=== PATIENT | female | born 1945 | race Caucasian/White ===

== ENCOUNTER 2017-04-03 20:10 | Emergency (ER) | payer OTHER ==
[~2017-04-03] VITALS: Wt 67.0 kg
[2017-04-03] MEDS ORDERED: IPRATROPIUM (NEB) 0.5 MG/2.5 ML AMP NEB STA ×2 (20:44→23:14)
[2017-04-03] MEDS ORDERED: ALBUTEROL 0.083% (NEB) 2.5 MG/3 ML AMP NEB STA ×2 (20:44→23:14)
[2017-04-03] MEDS ORDERED: SOD CHLORIDE 0.9% 1,000 ML IV STA (20:44)
[2017-04-03] MEDS ORDERED: BENZONATATE 100 MG CAP PO ONE (21:00)
[2017-04-03 21:13] LABS: BASOPHIL # 0.1 10^3/ul (0.0-0.1); BASOPHILS % 1.4 % (0.0-2.0); EOSINOPHILS # 0.3 10^3/ul (0.0-0.5); EOSINOPHILS % 3.7 % (0.0-7.0); HEMATOCRIT 38.7 % (37.0-47.0); HEMOGLOBIN 12.9 g/dl (12.0-16.0); LYMPHOCYTES # 2.6 10^3/ul (0.8-2.9); LYMPHOCYTES % 35.4 % (15.0-51.0); MEAN CORPUSCULAR HEMOGLOBIN 28.6 pg (29.0-33.0); MEAN CORPUSCULAR HGB CONC 33.3 g/dl (32.0-37.0); MEAN CORPUSCULAR VOLUME 85.8 fl (82.0-101.0); MEAN PLATELET VOLUME 10.4 fl (7.4-10.4); MONOCYTE # 0.8 10^3/ul (0.3-0.9); MONOCYTES % 11.6 % (0.0-11.0); NEUTROPHIL # 3.5 10^3/ul (1.6-7.5); NEUTROPHILS % 47.8 % (39.0-77.0); PLATELET COUNT 293 10^3/UL (140-415); RED BLOOD COUNT 4.51 10^6/ul (4.20-5.40); RED CELL DISTRIBUTION WIDTH 15.9 % (11.5-14.5); WHITE BLOOD COUNT 7.3 10^3/ul (4.8-10.8)
[2017-04-03 21:27] LABS: INR 0.88; PT RATIO 0.9
[2017-04-03 21:28] LABS: PARTIAL THROMBOPLASTIN TIME 25.8 Sec (25.0-35.0)
[2017-04-03 21:33] LABS: ALANINE AMINOTRANSFERASE 34 IU/L (13-69); ALBUMIN/GLOBULIN RATIO 1.11; ALKALINE PHOSPHATASE 92 IU/L (42-121); ANION GAP 16 (8-16); ASPARTATE AMINO TRANSFERASE 19 IU/L (15-46); BILIRUBIN,INDIRECT 0.3 mg/dl (0-1.1); BILIRUBIN,TOTAL 0.3 mg/dl (0.2-1.3); BLOOD UREA NITROGEN 23 mg/dl (7-20); CALCIUM 9.6 mg/dl (8.4-10.2); CARBON DIOXIDE 28 mmol/L (21-31); CHLORIDE 107 mmol/L (97-110); CREATININE 0.65 mg/dl (0.44-1.00); GLUCOSE 153 mg/dl (70-220); POTASSIUM 3.9 mmol/L (3.5-5.1); SODIUM 147 mmol/L (135-144); TOTAL PROTEIN 7.6 g/dl (6.1-8.1)
[2017-04-03 21:45] LABS: B-TYPE NATRIURETIC PEPTIDE 110 PG/ML (0-125)
[2017-04-03 21:47] LABS: TROPONIN-I < 0.012 ng/ml (0.00-0.12)
--- NOTE | 2017-04-03 22:53 | ERD ---
ER Documentation Chief Complaint Chief Complaint cough/chest congestion/chest pain x 3 days HPI This is a 71-year-old Portuguese-speaking female with a history of dementia and insulin-dependent diabetes mellitus with hypertension on metformin that presents to the emergency department complaining of a productive cough for the past 3 days. She has had no fever shaking or chills. However the cough has become more persistent and therefore they brought her to the emergency department to be further evaluated. She has no history of tobacco. She has been compliant with all of her medications. She has no shortness of breath at rest or she has no chest pain or pressure that radiates to the neck arm back or jaw. She denies any recent travel or prolonged immobilization no recent history of admission to hospital. ROS All systems reviewed and are negative except as per history of present illness. Medications Home Meds Active Scripts Albuterol Sulfate* (Proair HFA*) 8.5 Gm Hfa.aer.ad, 2 PUFF INH Q6H Y for WHEEZING AND SOB, #1 INHALER Prov:MARLENE VILLATORO 04/03/17 Azithromycin* (Zithromax*) 250 Mg Tablet, 250 MG PO DAILY for 4 Days, TAB Prov:MARLENE VILLATORO 04/03/17 Benzonatate* (Tessalon Perle*) 100 Mg Capsule, 100 MG PO Q8H Y for COUGH, #20 CAP Prov:RENEE VILLATOROA 04/03/17 Allergies Allergies: Coded Allergies: No Known Drug Allergies (Verified Allergy, Unknown, 04/03/17) PMhx/Soc History of Surgery: No Anesthesia Reaction: No Hx Neurological Disorder: No Hx Respiratory Disorders: No Hx Cardiac Disorders: Yes (HTN) Hx Psychiatric Problems: No Hx Miscellaneous Medical Probl: Yes (diabetes, GERD) Hx Alcohol Use: No Hx Substance Use: No Hx Tobacco Use: No Smoking Status: Never smoker Physical Exam Vitals Vital Signs Date Time Temp Pulse Resp B/P Pulse Ox O2 Delivery O2 Flow Rate FiO2 04/03/17 22:00 98.6 106 14 144/77 96 Room Air 04/03/17 21:04 84 20 98 21 04/03/17 21:00 84 16 141/98 100 Room Air 04/03/17 20:13 97.5 87 20 180/89 95 Physical Exam Constitutional:Well-developed. Well-nourished. HEENT:Normocephalic. Atraumatic.Pupils were equal round reactive to light. Moist mucous membranes.No tonsillar exudates. Neck: No nuchal rigidity. No lymphadenopathy. No posterior cervical spine tenderness or step-offs. Respiratory: Not using accessory muscles of respiration.Lungs were clear to auscultation bilaterally. No rhonchi. No rales. Mild wheezing on end auscultation bilaterally. Cardiovascular: Regular rate regular rhythm.No murmurs. No rubs were appreciated.S1, S2 normal. Distal pulses are palpable 2+ bilaterally. GI: Abdomen was soft. Nontender. Non Distended. No pulsatile abdominal masses or bruits. No rebound. No guarding. Bowel sounds were present and normal. Muscle skeletal: Full range of motion of both the upper and lower extremities bilaterally.Normal muscle tone.No assymetrical calf tenderness or swelling. Skin: No petechia, no purpura. No lesions on the palms or the soles of the feet. No maculopapular rash. NEURO: Patient was alert, awake, orientated to person place or time.No facial droop. Gait observed and normal with no ataxia.Speech had regular rate and rhythm. No focal neurological deficits. Result Diagram: 04/03/17 2100 04/03/17 2100 Results 24 hrs Laboratory Tests Test 04/03/17 21:00 White Blood Count 7.310^3/ul Red Blood Count 4.5110^6/ul Hemoglobin 12.9g/dl Hematocrit 38.7% Mean Corpuscular Volume 85.8fl Mean Corpuscular Hemoglobin 28.6pg Mean Corpuscular Hemoglobin Concent 33.3g/dl Red Cell Distribution Width 15.9% Platelet Count 68318^3/UL Mean Platelet Volume 10.4fl Neutrophils % 47.8% Lymphocytes % 35.4% Monocytes % 11.6% Eosinophils % 3.7% Basophils % 1.4% Nucleated Red Blood Cells % 0.0/100WBC Neutrophils # 3.510^3/ul Lymphocytes # 2.610^3/ul Monocytes # 0.810^3/ul Eosinophils # 0.310^3/ul Basophils # 0.110^3/ul Nucleated Red Blood Cells # 0.010^3/ul Prothrombin Time 12.0Sec Prothrombin Time Ratio 0.9 INR International Normalized Ratio 0.88 Activated Partial Thromboplast Time 25.8Sec Sodium Level 147mmol/L Potassium Level 3.9mmol/L Chloride Level 107mmol/L Carbon Dioxide Level 28mmol/L Anion Gap 16 Blood Urea Nitrogen 23mg/dl Creatinine 0.65mg/dl Glucose Level 153mg/dl Calcium Level 9.6mg/dl Total Bilirubin 0.3mg/dl Direct Bilirubin 0.00mg/dl Indirect Bilirubin 0.3mg/dl Aspartate Amino Transf (AST/SGOT) 19IU/L Alanine Aminotransferase (ALT/SGPT) 34IU/L Alkaline Phosphatase 92IU/L Troponin I < 0.012ng/ml B-Type Natriuretic Peptide 110PG/ML Total Protein 7.6g/dl Albumin 4.0g/dl Globulin 3.60g/dl Albumin/Globulin Ratio 1.11 Current Medications Medications (Trade) Dose Ordered Sig/Vu Route PRN Reason Start Time Stop Time Status Last Admin Dose Admin Sodium Chloride (NS) 1,000 ml @ 1,000 mls/hr Q1H STAT IV 04/03/17 20:44 04/03/17 21:43 DC 04/03/17 21:06 Albuterol (Proventil 0.083% (Neb)) 5 mg ONCE STAT NEB 04/03/17 20:44 04/03/17 20:49 DC 04/03/17 21:01 Ipratropium Alba (Atrovent 0.02% (Neb)) 0.5 mg ONCE STAT NEB 04/03/17 20:44 04/03/17 20:49 DC 04/03/17 21:01 Benzonatate 100 mg 100 mg ONCE ONCE PO 04/03/17 21:00 04/03/17 21:01 DC 04/03/17 21:40 Azithromycin (Zithromax 500mg/ NS (Pmx)) 250 ml @ 250 mls/hr ONCE ONCE IVPB 04/03/17 23:00 04/03/17 23:59 Acetaminophen/ Hydrocodone Bitart (Lortab Liq) 5 ml ONCE ONCE PO 04/03/17 23:00 04/03/17 23:01 DC Albuterol (Proventil 0.083% (Neb)) 5 mg ONCE STAT NEB 04/03/17 23:14 04/03/17 23:15 DC Ipratropium Alba (Atrovent 0.02% (Neb)) 0.5 mg ONCE STAT NEB 04/03/17 23:14 04/03/17 23:15 DC Procedures/MDM The patient presented to the emergency department with dyspnea. My differential diagnosis included but was not limited to upper airway obstruction, CHF, pulmonary embolism, cardiac ischemia, pneumonia, pneumothorax, anemia, drug overdose, pulmonary edema, COPD or asthma. The patient had IV access was established by nursing staff. She was given Tessalon Perles a nebulizer treatment of albuterol Atrovent and the patient was not given steroids given that the fact that she is a diabetic. She was reevaluated by myself and her wheezing completely resolved. 12 Lead EKG tracing ordered and reviewed by myself showed: Normal sinus rhythm of 82 bpm and no arrhythmia. NV interval normal. QRS duration normal. No ST segment elevation No ST segment depression. No changes consistent with acute ischemia. Patient had complete resolution of her symptoms I did feel she can be safely discharged home. Her daughter was present during her emergency room visit. The patient was given a prescription of azithromycin with the first dose given in the ER and follow-up with her PCP. I felt her symptoms were result of acute bronchitis and there is no evidence of pneumonia reviewed on the chest radiograph by myself. The patient was discharged home in fair condition. They were instructed to return to the emergency department at any time if there was any worsening of their condition. The patient stated they would follow up with their PCP in the next 24-48 hours to initiate a suitable medication regimen under the care of their PCP as well as to allow their PCP to monitor any drug reactions. The patient was discharged home with prescriptions after they gave informed consent to the new medication. They were also fully informed by myself on the adverse effects and adverse drug interactions in order to provide adequate safeguards to prevent possible adverse reactions to medications. Departure Diagnosis: Primary Impression: Bronchitis Condition: Fair MARLENE VILLATORO Apr 03, 2017 22:53
[2017-04-03] MEDS ORDERED: BENZ100C70 PO (22:56)
[2017-04-03] MEDS ORDERED: AZIT250T94 PO (22:56)
--- NOTE | 2017-04-03 22:57 | RADRPT ---
PROCEDURE: Portable chest x-ray. CLINICAL INDICATION: 71 years of age, female. Asthma exacerbation . TECHNIQUE: Portable AP view of the chest. COMPARISON: None available. FINDINGS: Medical devices: None. Atherosclerotic calcification and tortuosity of the thoracic aorta. Mildly enlarged cardiopericardia l silhouette. Mediastinal contours are otherwise normal. There is focal eventration of the right diaphragm. Lungs are clear. Negative for pleural effusion or pneumothorax. Curvature of thoracic spine convex right. Additional comment: None. IMPRESSION: Negative for evidence of an acute chest process. Negative for focal lung consolidation. RPTAT: HCTS Physician Rose Date Time Electronically viewed and signed by Kwadwo Lepe Physician on 04/03/2017 22:56 /
[2017-04-03] MEDS ORDERED: AZITHROMYCIN 500MG/NS (PMX) 250 ML IVPB ONE (23:00)
[2017-04-03] MEDS ORDERED: ACETAMINOPHEN 325/HYDROC 7.5 15 ML CUP PO ONE (23:00)
[2017-04-03] MEDS ORDERED: ALBU8.5H3 INH (23:13)
[2017-04-03] MEDS ORDERED: AZITHROMYCIN 250 MG TAB PO ONE (23:30)
[2017-04-04] VITALS: BP 128/77; PULSE 115; RESP 21; TEMP 98.6
== END 2017-04-04 00:39 | disposition home or self-care (01) ==
LOC: E/R 20:10
DX: J20.9 Acute bronchitis, unspecified (principal); I10 Essential (primary) hypertension; E11.9 Type 2 diabetes mellitus without complications; R05 Cough
CPT/HCPCS: 36415; 71010; 80053; 83880; 84484; 85025; 85610; 85730; 93005; 94640; 94664; 96374; J0456; J7030; Z7502; Z7610